=== PATIENT | male | born 1980 | race Caucasian/White ===

== ENCOUNTER 2016-10-18 06:55 | Emergency (ER) | payer SELFPAY ==
[~2016-10-18] VITALS: Ht 180.3 cm; Wt 94.3 kg
[2016-10-18 07:05] VITALS: BP 130/67
--- NOTE | 2016-10-18 07:10 | NUR ---
AMBULATED TO ER BED 6
--- NOTE | 2016-10-18 07:10 | NUR ---
PATIENT PRESENTS TO ED WITH RT FLANK PAIN FOR 2 DAYS NO N/V OR DIARRHEA .DENIES ANY MEDICAL HX; PT STATES IT PAIN COMES AND GO; SKIN IS PINK/WARM/DRY; AAOX4 WITH EVEN AND STEADY GAIT; LUNGS CLEAR BL; HR EVEN AND REGULAR; PT DENIES ANY FEVER, CP, SOB, OR COUGH AT THIS TIME; PATIENT STATES PAIN OF 8/10 AT THIS TIME;PATIENT POSITIONED FOR COMFORT; HOB ELEVATED; BEDRAILS UP X2; BED DOWN. ER MD MADE AWARE OF PT STATUS.
--- NOTE | 2016-10-18 07:25 | NUR ---
DR SULLIVAN AT BEDSIDE.
[2016-10-18] MEDS ORDERED: NACL 0.9% 1,000 ML IV SCH (07:30)
[2016-10-18] MEDS ORDERED: KETOROLAC 30 MG/ML VIAL IVP ONE (07:30)
--- NOTE | 2016-10-18 07:30 | NUR ---
Rica bowman in [facility] - 10/18/16 at 0916 by [email or web address] PATIENT BEING EVALUATED BY DR. BARTON.
--- NOTE | 2016-10-18 07:49 | NUR ---
PT TAKEN OFF THE UNIT FOR CT ABDOMEN VIA GURNEY BY SOLDERING MACHINE TENDER SLAVA
[2016-10-18 07:55] LABS: HEMATOCRIT 46.3 % (36-52); MEAN CORPUSCULAR HEMOGLOBIN 29 pg (27-31); MEAN CORPUSCULAR HGB CONC 32 g/dL (33-37); MEAN CORPUSCULAR VOLUME 88 fL (80-94); PLATELET COUNT (AUTO) 262 K/uL (140-450); RED BLOOD CELL COUNT(AUTO) 5.26 MIL/uL (4.20-6.10); RED CELL DISTRIBUTION WIDTH 12.3 % (11.6-13.7); WHITE BLOOD COUNT (AUTO) 8.4 K/uL (4.8-10.8)
[2016-10-18 08:05] LABS: ANION GAP 11.7 (8-16); CARBON DIOXIDE 27.3 mmol/L (21-32)
[2016-10-18 08:08] LABS: APPEARANCE,URINE CLEAR (CLEAR); BILIRUBIN,URINE NEGATIVE (NEGATIVE); BLOOD, URINE NEGATIVE (NEGATIVE); COLOR,URINE YELLOW (YELLOW); LEUKOCYTE ESTERASE ,URINE NEGATIVE (NEGATIVE); NITRITE, URINE NEGATIVE (NEGATIVE); UGLUCOSE NEGATIVE (NEGATIVE)
--- NOTE | 2016-10-18 08:09 | NUR ---
PT BACK FROM CT WITH C/O PAIN 05/26, PLACED BACK ON MONITOR, WILL CONTINUE TO MONITOR
[2016-10-18 08:10] LABS: ALBUMIN 3.7 g/dL (3.4-5.0); TOTAL BILIRUBIN 0.6 mg/dL (0.0-1.0)
[2016-10-18 08:17] LABS: RBC,URINE 0-5 (RARE) /HPF (0-5)
[2016-10-18 08:18] LABS: WBC,URINE 0-5 (RARE) /HPF (0-5)
[2016-10-18 09:10] VITALS: BP 121/81
--- NOTE | 2016-10-18 09:10 | NUR ---
Patient discharged with v/s stable. Written and verbal after care instructions given and explained. Patient verbalized understanding. Ambulatory with steady gait. All questions addressed prior to discharge. Advised to follow up with PMD.
== END 2016-10-18 09:10 | disposition home or self-care (01) ==
LOC: MED 06:55
DX: K59.00 Constipation, unspecified (principal); Z90.89 Acquired absence of other organs; Z72.0 Tobacco use
CPT/HCPCS: 36415; 74176; 80053; 81001; 85025; 87086; 96361; 96374; 99285; J1885; J7030

== ENCOUNTER 2020-11-14 11:43 | Emergency (ER) | payer MEDICAID, SELFPAY ==
[~2020-11-14] VITALS: Ht 182.9 cm; Wt 104.3 kg
[2020-11-14 11:50] VITALS: BP 120/70
--- NOTE | 2020-11-14 11:58 | NUR ---
PT AMBULATED TO BED 3
--- NOTE | 2020-11-14 12:07 | NUR ---
39 MALE BIB self from home c/o COVID-19 symptoms since Thursday: Left lung pain s/p cough, fever, headache, loss of taste/smell, dry cough, sore throat, SOB upon exertion. Patient denies chills, nausea, vomiting, diarrhea, chest pain, dizziness. Denies sick household members, but states he has been around a co-worker who's mother tested positive for COVID. States Albuterol yesterday with relief to symptoms. Oral temperature 98.2. Upon assessment breath sounds clear bilaterally and S1/S2 heard. Pt currently 97% O2 on RA PMH/Meds: Albuterol, PNA 5 years ago NKA Sx: Appendectomy,
--- NOTE | 2020-11-14 12:07 | NUR ---
Dr. [place] bedside evaluating pt
[2020-11-14] MEDS ORDERED: KETOROLAC 30 MG/ML VIAL IM ONE (12:15)
--- NOTE | 2020-11-14 12:19 | NUR ---
charly doherty swab collected and walked over to lab. swab handed to clinical laboratory aidebharathi Alexander
--- NOTE | 2020-11-14 12:24 | NUR ---
xray bedside with pt
[2020-11-14] MEDS ORDERED: IBUP-2213 PO (12:45)
[2020-11-14 12:54] VITALS: BP 120/70
--- NOTE | 2020-11-14 12:54 | NUR ---
Note undone in EDM - 11/14/20 at 1255 by [email or web address] Patient discharged with v/s stable. Written and verbal after care instructions given and explained. Patient alert, oriented and verbalized understanding of instructions. Ambulatory with steady gait. All questions addressed prior to discharge. ID band removed. Patient advised to follow up with PMD. Rx of iburpofen given. Patient educated on indication of medication including possible reaction and side effects. Opportunity to ask questions provided and answered.
== END 2020-11-14 12:55 | disposition home or self-care (01) ==
LOC: MED 11:43
DX: R05 Cough (principal); Z20.822 Contact with and (suspected) exposure to COVID-19; M54.6 Pain in thoracic spine; F17.200 Nicotine dependence, unspecified, uncomplicated; Z79.899 Other long term (current) drug therapy
CPT/HCPCS: 71045; 96372; 99284; J1885; U0003